=== PATIENT | female | born 1980 | race Caucasian/White ===

== ENCOUNTER 2023-06-15 05:12 | Inpatient (IN) | payer MEDICAID ==
[~2023-06-15] VITALS: Ht 144.8 cm; Wt 57.2 kg
[2023-06-15] VITALS: BP 105/62; PULSE 73; RESP 20; TEMP 97.4
[~2023-06-15 05:12] MED LIST: CHOL100046 PO; DOCU-150 PO; ESCI20TA37 PO; FOLI-43 PO; LACO200T2 PO; LAMO100T65 PO; LEVE750T66 PO; MONT-39 PO; OLAN5TAB74 PO; PYRI50CA PO; QUET200T30 PO
[2023-06-15] MEDS ORDERED: SODIUM CHLORIDE 0.9% 1,000 ML IV SCH (05:30)
[2023-06-15 05:56] LABS: UCG QC LOT# 620457; UCG SCREEN NEGATIVE
[2023-06-15] MEDS ORDERED: FENTANYL CITRATE/PF 50MCG/ML 2ML VIAL ONE (07:21)
[2023-06-15] MEDS ORDERED: PROPOFOL 200MG/20ML VIAL IV ONE (07:21)
[2023-06-15] MEDS ORDERED: SUCCINYLCHOLINE CHLORIDE 200MG/10ML IV ONE (07:21)
[2023-06-15] MEDS ORDERED: ROCURONIUM BROMIDE 10MG/ML VIAL 5ML IV ONE ×2 (07:21→08:28)
[2023-06-15] MEDS ORDERED: MIDAZOLAM HCL 2 MG/2 ML VIAL ONE (07:21)
[2023-06-15] MEDS ORDERED: ONDANSETRON HCL 4MG/2ML INJ IV PRN ×2 (08:00→14:15)
[2023-06-15] MEDS ORDERED: MORPHINE SULFATE 4 MG/ML CPJ (NOT FOR IM USE) IV PRN (08:00)
[2023-06-15] MEDS ORDERED: SKIN ADHESIVE 0.7 GM EA TOP ONE (08:03)
[2023-06-15] MEDS ORDERED: BUPIVACAINE HCL/PF 0.5% (5MG/ML) 10ML ONE (08:03)
[2023-06-15] MEDS ORDERED: HYDROMORPHONE HCL/PF 2MG/ML CPJ ONE (08:33)
[2023-06-15] MEDS ORDERED: GLYCOPYRROLATE 0.2 MG/ML 2ML VIAL ONE ×2 (08:36→08:48)
[2023-06-15] MEDS ORDERED: NEOSTIGMINE METHYLSULFATE 1MG/ML 10 ML VIAL ONE (08:36)
[2023-06-15] MEDS: DEXT 5%/0.45% NACL KCL 20MEQ/L 1,000 ML IV SCH ×2 (09:00→17:33)
[2023-06-15 12:00] VITALS: BP 95/45; PULSE 76; RESP 18; TEMP 97.7
[2023-06-15] MEDS: MORPHINE SULFATE 2 MG/ML CPJ (NOT FOR IM USE) IV PRN (13:51)
[2023-06-15] MEDS ORDERED: CEFAZOLIN 1000MG PREMIX 50 ML IV SCH (14:30)
[2023-06-15] MEDS ORDERED: DEXTROSE 50% WATER 50ML SYRINGE IV PRN (15:00)
[2023-06-15] MEDS ORDERED: LORAZEPAM 2MG/ML CPJ IV PRN (15:15)
[2023-06-15 16:00] VITALS: BP 108/65; PULSE 76; RESP 18; TEMP 97.7
[2023-06-15 16:23] LABS: HEMATOCRIT 30.5 % (36.0-48.0); HEMOGLOBIN 9.4 g/dL (12.0-16.0)
[2023-06-15] MEDS ORDERED: LEVETIRACETAM PO SCH (17:00)
[2023-06-15] MEDS: CEFAZOLIN 1000MG PREMIX 50 ML IV SCH (17:11)
[2023-06-15] MEDS: MONTELUKAST SODIUM 10MG TABLET PO SCH (17:31)
[2023-06-15] MEDS: BLOOD SUGAR DIAGNOSTIC STRIP TEST SCH ×2 (17:31→21:00)
[2023-06-15] MEDS: LAMOTRIGINE 100MG TABLET PO SCH (17:32)
[2023-06-15] MEDS: LACOSAMIDE 100 MG TABLET PO SCH (17:32)
[2023-06-15] MEDS: PANTOPRAZOLE SODIUM 40 MG/VIAL IV SCH (17:32)
[2023-06-15 17:36] LABS: CHLORIDE 114 mEq/L (98-107); INDEX HEMOLYSI 2 (1-3); INDEX ICTERIC 1 (1-4); INDEX LIPEMIC 1 (1-3); POTASSIUM 4.4 mEq/L (3.5-5.1); SODIUM 137 mEq/L (136-145)
[2023-06-15 17:43] LABS: ALANINE AMINOTRANSFERASE 49 IU/L (13-61); ALBUMIN 1.8 g/dL (3.4-5.0); ASPARTATE AMINOTRANSFERASE 67 IU/L (15-37); BILIRUBIN TOTAL 0.5 mg/dL (0.1-1.0); CARBON DIOXIDE 13 mEq/L (21-32); CREATININE 0.3 mg/dL (0.6-1.3); GLUCOSE 61 mg/dL (70-105); PROTEIN TOTAL 6.9 g/dL (6.0-8.3); UREA NITROGEN BLOOD 3 mg/dL (7-21)
[2023-06-15 18:10] VITALS: BP 105/60; PULSE 70; RESP 18; TEMP 97.3
[2023-06-15 18:35] LABS: CALCIUM < 5.0 mg/dL (8.5-10.1)
[2023-06-15 20:00] VITALS: BP 124/54; PULSE 74; RESP 16; TEMP 98.8
[2023-06-15] MEDS ORDERED: MEDICATION NOT ON FORMULARY EA (Escitalopram Oxalate 1 TAB) PO SCH (21:00)
[2023-06-15] MEDS ORDERED: MEDICATION NOT ON FORMULARY EA (Quetiapine Fumarate 1 TAB) PO SCH (21:00)
[2023-06-15] MEDS ORDERED: MEDICATION NOT ON FORMULARY EA (Lamotrigine 1 TAB) PO SCH (21:00)
[2023-06-15] MEDS: CITALOPRAM HYDROBROMIDE 10MG TABLET PO SCH (21:26)
[2023-06-15] MEDS: LEVETIRACETAM 500MG TABLET PO SCH (21:26)
[2023-06-15] MEDS: QUETIAPINE FUMARATE 200MG TABLET PO SCH (21:26)
[2023-06-15] MEDS: OLANZAPINE 5MG TABLET PO SCH (21:27)
[2023-06-16] MEDS: CEFAZOLIN 1000MG PREMIX 50 ML IV SCH ×2 (00:53→09:08)
[2023-06-16 04:00] VITALS: BP 119/62; PULSE 82; RESP 19; TEMP 98
[2023-06-16] MEDS: DEXT 5%/0.45% NACL KCL 20MEQ/L 1,000 ML IV SCH ×2 (05:00→18:11)
[2023-06-16] MEDS: BLOOD SUGAR DIAGNOSTIC STRIP TEST SCH ×4 (07:52→21:00)
[2023-06-16 08:00] VITALS: BP 112/52; PULSE 79; RESP 19; TEMP 98.2
[2023-06-16] MEDS ORDERED: MEDICATION NOT ON FORMULARY EA (Cholecalciferol (Vitamin D3) (Vitamin D3) 1 CAP) PO SCH (09:00)
[2023-06-16] MEDS ORDERED: PYRIDOXINE HCL PO SCH (09:00)
[2023-06-16] MEDS ORDERED: LACOSAMIDE PO SCH (09:00)
[2023-06-16] MEDS: PANTOPRAZOLE SODIUM 40 MG/VIAL IV SCH ×2 (09:08→18:00)
[2023-06-16] MEDS: LEVETIRACETAM 500MG TABLET PO SCH ×2 (09:09→21:23)
[2023-06-16] MEDS: LACOSAMIDE 100 MG TABLET PO SCH ×2 (09:09→18:00)
[2023-06-16] MEDS: CHOLECALCIFEROL (D3) 1000 UNIT TABLET PO SCH (09:09)
[2023-06-16] MEDS: FOLIC ACID 1MG TABLET PO SCH (09:10)
[2023-06-16] MEDS: DOCUSATE SODIUM 100MG CAPSULE PO SCH ×2 (09:10→18:00)
[2023-06-16 09:46] LABS: BASOPHILS % 0.2 % (0.0-2.0); DIFFERENTIAL COMMENT 0; EOSINOPHILS % 0.3 % (0.0-5.0); HEMATOCRIT. 30.3 % (36.0-48.0); HEMOGLOBIN. 9.4 g/dL (12.0-16.0); LYMPHOCYTES % 8.2 % (20.0-50.0); MEAN CORPUSCULAR HEMOGLOBIN 22.9 pg (28.0-32.0); MEAN CORPUSCULAR HGB CONC 31.1 g/dL (31.0-37.0); MEAN CORPUSCULAR VOLUME 73.8 fL (81.0-99.0); MONOCYTES % 5.4 % (2.0-8.0); NEUTROPHILS % 85.9 % (40.0-76.0); PLATELET 399 x1000/uL (130-400); RED CELL DISTRIBUTION WIDTH 19.7 % (11.6-14.6); WHITE BLOOD COUNT 10.8 x1000/uL (4.5-11.0)
[2023-06-16] MEDS: MORPHINE SULFATE 2 MG/ML CPJ (NOT FOR IM USE) IV PRN ×3 (10:33→21:23)
[2023-06-16] MEDS: PYRIDOXINE HCL 50MG TABLET PO SCH (11:04)
[2023-06-16 12:00] VITALS: BP 114/55; PULSE 73; RESP 19; TEMP 97.7
[2023-06-16 13:34] LABS: CLARITY URINE CLEAR (CLEAR); COLOR URINE DARK YELLOW (YELLOW); GLUCOSE URINE NEGATIVE (NEGATIVE); KETONES URINE TRACE (NEGATIVE); LEUKOCYTE ESTERASE URINE TRACE (NEGATIVE); NITRITE URINE NEGATIVE (NEGATIVE); OCCULT BLOOD URINE NEGATIVE (NEGATIVE); PH URINE 8.5 (4.5-8.0); PROTEIN URINE TRACE (NEGATIVE); SPECIFIC GRAVITY URINE 1.028 (1.005-1.030)
[2023-06-16 14:06] LABS: TRIPLE PHOSPHATE CRYSTAL URINE 1+ /lpf
[2023-06-16 14:07] LABS: SQUAMOUS EPITHELIAL CELL URINE FEW /lpf (RARE/1+)
[2023-06-16 14:08] LABS: BACTERIA URINE 1+; MUCUS URINE TRACE /lpf (< = 2+)
[2023-06-16 14:09] LABS: WBC URINE 0-2 /hpf (0-2)
[2023-06-16 14:10] LABS: RBC URINE NONE SEEN /hpf (0-2)
[2023-06-16] MEDS ORDERED: NALOXONE HCL 0.4MG/ML VIAL IV PRN (14:45)
[2023-06-16 16:00] VITALS: BP 131/70; PULSE 86; RESP 20; TEMP 96.9
[2023-06-16] MEDS: LAMOTRIGINE 100MG TABLET PO SCH (18:00)
[2023-06-16] MEDS: MONTELUKAST SODIUM 10MG TABLET PO SCH (18:10)
[2023-06-16 20:00] VITALS: BP 110/68; PULSE 102; RESP 19; TEMP 97.7
[2023-06-16] MEDS: CITALOPRAM HYDROBROMIDE 10MG TABLET PO SCH (21:23)
[2023-06-16] MEDS: OLANZAPINE 5MG TABLET PO SCH (21:23)
[2023-06-16] MEDS: QUETIAPINE FUMARATE 200MG TABLET PO SCH (21:23)
[2023-06-17] VITALS: BP 118/77; PULSE 88; RESP 16; TEMP 97.4
[2023-06-17] MEDS: DEXT 5%/0.45% NACL KCL 20MEQ/L 1,000 ML IV SCH ×3 (00:54→21:40)
[2023-06-17 04:00] VITALS: BP 104/57; PULSE 96; RESP 20; TEMP 98.1
[2023-06-17] MEDS: MORPHINE SULFATE 2 MG/ML CPJ (NOT FOR IM USE) IV PRN ×3 (06:45→15:59)
[2023-06-17] MEDS: BLOOD SUGAR DIAGNOSTIC STRIP TEST SCH ×4 (06:54→20:14)
[2023-06-17 07:05] LABS: BASOPHILS % 0.3 % (0.0-2.0); DIFFERENTIAL COMMENT 0; EOSINOPHILS % 1.3 % (0.0-5.0); HEMATOCRIT. 28.5 % (36.0-48.0); HEMOGLOBIN. 9.1 g/dL (12.0-16.0); LYMPHOCYTES % 10.1 % (20.0-50.0); MEAN CORPUSCULAR HEMOGLOBIN 23.3 pg (28.0-32.0); MEAN CORPUSCULAR VOLUME 72.8 fL (81.0-99.0); MEAN PLATELET VOLUME 5.9 fl (7.4-10.4); MONOCYTES % 6.4 % (2.0-8.0); NEUTROPHILS % 81.9 % (40.0-76.0); PLATELET 386 x1000/uL (130-400); RED BLOOD CELL COUNT 3.91 mill/uL (4.2-5.4); RED CELL DISTRIBUTION WIDTH 20.1 % (11.6-14.6); WHITE BLOOD COUNT 9.8 x1000/uL (4.5-11.0)
[2023-06-17 08:00] VITALS: BP 112/62; PULSE 90; RESP 20; TEMP 97.7
[2023-06-17 08:00] LABS: CHLORIDE 107 mEq/L (98-107); INDEX HEMOLYSI 1 (1-3); INDEX ICTERIC 1 (1-4); INDEX LIPEMIC 1 (1-3); POTASSIUM 3.9 mEq/L (3.5-5.1); SODIUM 138 mEq/L (136-145)
[2023-06-17 08:11] LABS: ALANINE AMINOTRANSFERASE 28 IU/L (13-61); ALBUMIN 2.5 g/dL (3.4-5.0); ASPARTATE AMINOTRANSFERASE 21 IU/L (15-37); BILIRUBIN TOTAL 0.7 mg/dL (0.1-1.0); CALCIUM 8.4 mg/dL (8.5-10.1); CARBON DIOXIDE 28 mEq/L (21-32); CREATININE 0.7 mg/dL (0.6-1.3); GLUCOSE 99 mg/dL (70-105); PHOSPHORUS 3.4 mg/dL (2.5-4.9); PROTEIN TOTAL 6.6 g/dL (6.0-8.3); TROPONIN I HIGH SENSITIVITY < 4 ng/L (<54); UREA NITROGEN BLOOD 7 mg/dL (7-21)
[2023-06-17] MEDS: LACOSAMIDE 100 MG TABLET PO SCH ×2 (08:49→17:36)
[2023-06-17] MEDS: PANTOPRAZOLE SODIUM 40 MG/VIAL IV SCH ×2 (08:50→17:36)
[2023-06-17] MEDS: FOLIC ACID 1MG TABLET PO SCH (08:50)
[2023-06-17] MEDS: LEVETIRACETAM 500MG TABLET PO SCH ×2 (08:50→20:45)
[2023-06-17] MEDS: DOCUSATE SODIUM 100MG CAPSULE PO SCH ×2 (08:50→17:36)
[2023-06-17] MEDS: PYRIDOXINE HCL 50MG TABLET PO SCH (08:50)
[2023-06-17] MEDS: CHOLECALCIFEROL (D3) 1000 UNIT TABLET PO SCH (08:50)
[2023-06-17] MEDS: ENOXAPARIN 40MG/0.4ML SYR SUBCUT SCH (08:52)
[2023-06-17 12:00] VITALS: BP_SYST 114; BP_SYST 96; BP_DIAS 57; BP_DIAS 63; PULSE 83; PULSE 88; RESP 18; RESP 20; TEMP 98; TEMP 99
[2023-06-17 16:00] VITALS: BP 108/68; PULSE 80; RESP 18; TEMP 97.4
[2023-06-17] MEDS: LAMOTRIGINE 100MG TABLET PO SCH (17:37)
[2023-06-17] MEDS: MONTELUKAST SODIUM 10MG TABLET PO SCH (17:37)
[2023-06-17 20:00] VITALS: BP 108/44; PULSE 69; RESP 20; RESP 69; TEMP 97.4
[2023-06-17] MEDS: OLANZAPINE 5MG TABLET PO SCH (20:45)
[2023-06-17] MEDS: QUETIAPINE FUMARATE 200MG TABLET PO SCH (20:45)
[2023-06-17] MEDS: CITALOPRAM HYDROBROMIDE 10MG TABLET PO SCH (20:45)
[2023-06-18] VITALS: BP 110/69; PULSE 79; RESP 20; TEMP 95.8
[2023-06-18 04:00] VITALS: BP 120/72; PULSE 73; RESP 20; TEMP 96.2
[2023-06-18] MEDS: DEXT 5%/0.45% NACL KCL 20MEQ/L 1,000 ML IV SCH ×2 (07:00→17:50)
[2023-06-18 08:00] VITALS: BP 108/66; PULSE 76; RESP 18; TEMP 97.9
[2023-06-18 08:03] LABS: BASOPHILS % 0.6 % (0.0-2.0); EOSINOPHILS % 3.4 % (0.0-5.0); HEMATOCRIT. 28.1 % (36.0-48.0); HEMOGLOBIN. 9.2 g/dL (12.0-16.0); LYMPHOCYTES % 9.6 % (20.0-50.0); MEAN CORPUSCULAR HEMOGLOBIN 23.8 pg (28.0-32.0); MEAN CORPUSCULAR HGB CONC 32.5 g/dL (31.0-37.0); NEUTROPHILS % 80.4 % (40.0-76.0); RED BLOOD CELL COUNT 3.85 mill/uL (4.2-5.4); RED CELL DISTRIBUTION WIDTH 19.7 % (11.6-14.6)
[2023-06-18 08:15] LABS: CALCIUM 8.4 mg/dL (8.5-10.1); CHLORIDE 106 mEq/L (98-107); INDEX HEMOLYSI 2 (1-3); INDEX ICTERIC 1 (1-4); INDEX LIPEMIC 1 (1-3); SODIUM 136 mEq/L (136-145)
[2023-06-18 08:20] LABS: CARBON DIOXIDE 24 mEq/L (21-32); CREATININE 0.5 mg/dL (0.6-1.3); GLUCOSE 104 mg/dL (70-105); PHOSPHORUS 4.2 mg/dL (2.5-4.9); UREA NITROGEN BLOOD 6 mg/dL (7-21)
[2023-06-18 08:42] LABS: DIFFERENTIAL COMMENT 1
[2023-06-18] MEDS: PANTOPRAZOLE SODIUM 40 MG/VIAL IV SCH ×2 (10:26→17:19)
[2023-06-18] MEDS: PYRIDOXINE HCL 50MG TABLET PO SCH (10:27)
[2023-06-18] MEDS: LACOSAMIDE 100 MG TABLET PO SCH ×2 (10:27→17:19)
[2023-06-18] MEDS: DOCUSATE SODIUM 100MG CAPSULE PO SCH ×2 (10:27→17:19)
[2023-06-18] MEDS: CHOLECALCIFEROL (D3) 1000 UNIT TABLET PO SCH (10:27)
[2023-06-18] MEDS: LEVETIRACETAM 500MG TABLET PO SCH ×2 (10:28→22:43)
[2023-06-18] MEDS: FOLIC ACID 1MG TABLET PO SCH (10:28)
[2023-06-18] MEDS: ENOXAPARIN 40MG/0.4ML SYR SUBCUT SCH (10:30)
[2023-06-18 12:00] VITALS: BP 120/78; PULSE 76; RESP 19; TEMP 98.2
[2023-06-18] MEDS: BLOOD SUGAR DIAGNOSTIC STRIP TEST SCH ×3 (12:30→21:00)
[2023-06-18 12:52] LABS: MEAN PLATELET VOLUME 6.5 fl (7.4-10.4); PLATELET 352 x1000/uL (130-400)
[2023-06-18 16:00] VITALS: BP 130/75; PULSE 86; RESP 18; TEMP 100.6
[2023-06-18] MEDS: LAMOTRIGINE 100MG TABLET PO SCH (17:19)
[2023-06-18] MEDS: MONTELUKAST SODIUM 10MG TABLET PO SCH (17:50)
[2023-06-18 20:00] VITALS: BP 121/66; PULSE 82; RESP 20; TEMP 97.7
[2023-06-18] MEDS: QUETIAPINE FUMARATE 200MG TABLET PO SCH (22:41)
[2023-06-18] MEDS: OLANZAPINE 5MG TABLET PO SCH (22:42)
[2023-06-18] MEDS: CITALOPRAM HYDROBROMIDE 10MG TABLET PO SCH (22:42)
[2023-06-19] VITALS: BP 122/68; PULSE 71; RESP 19; TEMP 98.2
[2023-06-19] MEDS: DEXT 5%/0.45% NACL KCL 20MEQ/L 1,000 ML IV SCH ×3 (03:15→23:00)
[2023-06-19 04:00] VITALS: BP 115/78; PULSE 90; RESP 20; TEMP 98.3
[2023-06-19] MEDS: BLOOD SUGAR DIAGNOSTIC STRIP TEST SCH ×3 (07:05→21:00)
[2023-06-19 08:00] VITALS: BP 115/82; PULSE 96; RESP 19; TEMP 99.3
[2023-06-19] MEDS: LACOSAMIDE 100 MG TABLET PO SCH ×2 (09:21→17:36)
[2023-06-19] MEDS: LEVETIRACETAM 500MG TABLET PO SCH ×2 (09:21→21:59)
[2023-06-19] MEDS: DOCUSATE SODIUM 100MG CAPSULE PO SCH ×2 (09:21→17:35)
[2023-06-19] MEDS: PYRIDOXINE HCL 50MG TABLET PO SCH (09:21)
[2023-06-19] MEDS: FOLIC ACID 1MG TABLET PO SCH (09:21)
[2023-06-19] MEDS: CHOLECALCIFEROL (D3) 1000 UNIT TABLET PO SCH (09:22)
[2023-06-19] MEDS: PANTOPRAZOLE SODIUM 40 MG/VIAL IV SCH ×2 (09:22→17:39)
[2023-06-19] MEDS: ENOXAPARIN 40MG/0.4ML SYR SUBCUT SCH (09:22)
[2023-06-19 12:00] VITALS: BP 129/80; PULSE 94; RESP 18; TEMP 99.9
[2023-06-19 16:00] VITALS: BP 125/68; PULSE 90; RESP 18; TEMP 96.1
[2023-06-19] MEDS: LAMOTRIGINE 100MG TABLET PO SCH (17:36)
[2023-06-19] MEDS: MONTELUKAST SODIUM 10MG TABLET PO SCH (17:36)
[2023-06-19 20:00] VITALS: BP 119/72; PULSE 87; RESP 18; TEMP 98.6
[2023-06-19] MEDS: QUETIAPINE FUMARATE 200MG TABLET PO SCH (22:00)
[2023-06-19] MEDS: CITALOPRAM HYDROBROMIDE 10MG TABLET PO SCH (22:00)
[2023-06-19] MEDS: OLANZAPINE 5MG TABLET PO SCH (22:00)
[2023-06-20 04:00] VITALS: BP 126/75; PULSE 92; RESP 18; TEMP 97.9
[2023-06-20] MEDS: BLOOD SUGAR DIAGNOSTIC STRIP TEST SCH ×4 (07:23→21:44)
[2023-06-20 08:00] VITALS: BP 124/84; PULSE 95; RESP 20; TEMP 97.3
[2023-06-20] MEDS: DOCUSATE SODIUM 100MG CAPSULE PO SCH ×2 (08:50→17:53)
[2023-06-20] MEDS: FOLIC ACID 1MG TABLET PO SCH (08:50)
[2023-06-20] MEDS: PYRIDOXINE HCL 50MG TABLET PO SCH (08:51)
[2023-06-20] MEDS: CHOLECALCIFEROL (D3) 1000 UNIT TABLET PO SCH (08:51)
[2023-06-20] MEDS: LEVETIRACETAM 500MG TABLET PO SCH ×2 (08:51→20:37)
[2023-06-20] MEDS: LACOSAMIDE 100 MG TABLET PO SCH ×2 (08:51→17:53)
[2023-06-20] MEDS: DEXT 5%/0.45% NACL KCL 20MEQ/L 1,000 ML IV SCH ×2 (09:00→19:00)
[2023-06-20] MEDS: ENOXAPARIN 40MG/0.4ML SYR SUBCUT SCH (09:03)
[2023-06-20] MEDS: PANTOPRAZOLE SODIUM 40 MG/VIAL IV SCH ×2 (09:03→17:53)
[2023-06-20 12:00] VITALS: BP 123/76; PULSE 82; RESP 20; TEMP 97.1
[2023-06-20] MEDS: MORPHINE SULFATE 2 MG/ML CPJ (NOT FOR IM USE) IV PRN ×2 (15:46→20:39)
[2023-06-20 16:00] VITALS: BP 106/76; PULSE 84; RESP 20; TEMP 97.7
[2023-06-20] MEDS: LAMOTRIGINE 100MG TABLET PO SCH (17:53)
[2023-06-20] MEDS: MONTELUKAST SODIUM 10MG TABLET PO SCH (17:53)
[2023-06-20] MEDS ORDERED: PYRI-8 PO (19:55)
[2023-06-20 20:00] VITALS: BP 129/80; PULSE 87; RESP 18; TEMP 97.9
[2023-06-20] MEDS: CITALOPRAM HYDROBROMIDE 10MG TABLET PO SCH (20:37)
[2023-06-20] MEDS: QUETIAPINE FUMARATE 200MG TABLET PO SCH (20:37)
[2023-06-20] MEDS: OLANZAPINE 5MG TABLET PO SCH (20:37)
[2023-06-21] VITALS: BP 121/66; PULSE 77; RESP 18; TEMP 97.7
[2023-06-21 04:00] VITALS: BP 122/80; PULSE 80; RESP 18; TEMP 97.7
[2023-06-21] MEDS: DEXT 5%/0.45% NACL KCL 20MEQ/L 1,000 ML IV SCH (05:00)
[2023-06-21] MEDS: BLOOD SUGAR DIAGNOSTIC STRIP TEST SCH ×2 (07:23→12:20)
[2023-06-21 08:00] VITALS: BP 144/78; PULSE 82; RESP 18; TEMP 98.3
[2023-06-21] MEDS: CHOLECALCIFEROL (D3) 1000 UNIT TABLET PO SCH (08:25)
[2023-06-21] MEDS: FOLIC ACID 1MG TABLET PO SCH (08:25)
[2023-06-21] MEDS: ENOXAPARIN 40MG/0.4ML SYR SUBCUT SCH (08:25)
[2023-06-21] MEDS: LACOSAMIDE 100 MG TABLET PO SCH (08:26)
[2023-06-21] MEDS: PYRIDOXINE HCL 50MG TABLET PO SCH (08:26)
[2023-06-21] MEDS: DOCUSATE SODIUM 100MG CAPSULE PO SCH (08:26)
[2023-06-21] MEDS: PANTOPRAZOLE SODIUM 40 MG/VIAL IV SCH (08:26)
[2023-06-21] MEDS: LEVETIRACETAM 500MG TABLET PO SCH (08:26)
[2023-06-21] MEDS: MORPHINE SULFATE 2 MG/ML CPJ (NOT FOR IM USE) IV PRN ×2 (08:54→14:33)
[2023-06-21 12:00] VITALS: BP 131/81; PULSE 75; RESP 18; TEMP 97.6
[2023-06-21 15:30] VITALS: BP 131/71; PULSE 95; TEMP 97.6; O2SAT 97
[2023-06-21 16:00] VITALS: BP 145/79; PULSE 91; RESP 19; TEMP 97.6
== END 2023-06-21 18:23 | disposition home health service (06) | DRG 231 ==
LOC: OR 05:12 → 6EST 11:24
PROVIDERS: ADMIT Surgery; ATTEND Surgery
PROC: 0DTF0ZZ Resection of Right Large Intestine, Open Approach (ICD-10-PCS; principal; 2023-06-15)
PROC: 30233N1 Transfusion of Nonautologous Red Blood Cells into Peripheral Vein, Percutaneous Approach (ICD-10-PCS; 2023-06-15)
DX: C18.2 Malignant neoplasm of ascending colon (principal); R56.9 Unspecified convulsions; E83.51 Hypocalcemia; F29 Unspecified psychosis not due to a substance or known physiological condition; J45.909 Unspecified asthma, uncomplicated; F90.9 Attention-deficit hyperactivity disorder, unspecified type; F70 Mild intellectual disabilities; F32.A Depression, unspecified; Z85.038 Personal history of other malignant neoplasm of large intestine
CPT/HCPCS: 36415; 80048; 80053; 80339; 81003; 81025; 82306; 82330; 82962; 83036; 83735; 83970; 84100; 84484; 85014; 85018; 85025; 86850; 86900; 86920; 88307; 97116; 97161; C1893; C9113; J0330; J0690; J1170; J1650; J2060; J2250; J2270; J2704; J2710; J3010; J3490; J7030; P9016